=== PATIENT | male | born 1965 | race Caucasian/White ===

== ENCOUNTER 2020-07-08 07:56 | Emergency (ER) | payer OTHER ==
[~2020-07-08] VITALS: Ht 182.9 cm; Wt 122.7 kg
[2020-07-08 08:02] VITALS: Ht 182.9 cm; Wt 122.7 kg
[2020-07-08] MEDS ORDERED: TOPROL XL50 MG (08:04)
[2020-07-08] MEDS ORDERED: POTASSIUM99 M1 (08:05)
[2020-07-08] MEDS ORDERED: SYNTHROID25 MCG (08:05)
[2020-07-08] MEDS ORDERED: METFORMIN HCL500 M1 (08:05)
[2020-07-08] MEDS ORDERED: HYDROCHLOROTH12.5 M1 (08:06)
[2020-07-08 08:53] VITALS: BP 163/98
[2020-07-08 10:23] LABS: CALC OSMOLALITY 276 mosm/kg (275-300); CALCIUM 9.3 mg/dL (8.5-10.1); CARBON DIOXIDE 26.5 mmol/L (21.0-32.0); CHLORIDE - SERUM 99 mmol/L (98-107); CREATININE - SERUM 0.9 mg/dL (0.6-1.3); GLUCOSE 265 mg/dL (74-106); POTASSIUM - SERUM 3.6 mmol/L (3.5-5.1); SODIUM 135 mmol/L (136-145); UREA NITROGEN 8 mg/dL (7-18); eGFR NON AFRICAN AMERICAN > 90 mL/min (90-120)
[2020-07-08 10:29] LABS: BASOPHILS 0.5 % (0-2); EOSINOPHILS 3.1 % (0-7); HEMATOCRIT 42.3 % (42.0-54.0); HEMOGLOBIN 14.5 g/dL (13.5-17.5); IMMATURE GRANULOCYTES 0.3 % (0-5); MCH 28.7 pg (26.0-34.0); MCHC 34.3 g/dL (31.0-37.0); MCV 83.6 fL (80.0-100.0); MEAN PLATELET VOLUME 10.8 fL (7.4-10.4); MONOCYTES 7.2 % (2-11); NEUTROPHIL ABS# 4.56 10x3/uL (1.78-5.38); NEUTROPHILS 60.9 % (40-80); PLATELET COUNT 218 10x3/uL (130-400); RBC 5.06 10x6/uL (4.20-6.10); WBC 7.5 10x3/uL (4.8-10.8)
[2020-07-08 10:39] LABS: ALBUMIN 3.9 g/dL (3.4-5.0); ALKALINE PHOSPHATASE 51 U/L (30-120); ALT (SGPT) 38 U/L (10-68); CKMB 0.2 U/L (0.0-3.6); CREATINE KINASE 45 UL (21-232); PROTEIN - SERUM 7.3 g/dL (6.4-8.2); TROPONIN-I < 0.017 ng/mL (0.000-0.060)
== END 2020-07-08 11:57 | disposition home or self-care (01) ==
LOC: D.ER 07:56
PROVIDERS: Family Medicine
DX: I10 Essential (primary) hypertension (principal); R42 Dizziness and giddiness; E11.9 Type 2 diabetes mellitus without complications; Z79.84 Long term (current) use of oral hypoglycemic drugs